=== PATIENT | female | born 1945 | race Caucasian/White ===

== ENCOUNTER → 2016-08-04 | Outpatient (CLI) | payer OTHER ==
[~2016-08-04] VITALS: Ht 170.2 cm; Wt 65.0 kg
[2016-08-04] VITALS (7 sets, daily range): BP systolic 108–154; BP diastolic 62–81
[~2016-08-04] MED LIST: ACYCLOVIR200 MG PO; ACYCLOVIR400 MG PO; ALPRAZOLAM0.5 MG PO; AMLODIPINE BESY10 MG PO; APRESOLINE50 MG PO; Aspirin PO; Atarax,Vistaril PO; BACTRIM,SEPT1 TABLE1 PO; BACTRIM,SEPT1 TABLET PO; BENADRYL25 MG PO; BISACODYL5 MG PO; CALCIUM 600 +1 EAC3 PO; CALCIUM 600 WI1 EAC1 PO; CARAFATE100 MG/ML PO; CHEWABLE MULTI1 EACH PO; CITROMA296 ML PO; CLEARLAX510 GM PO; CLONAZEPAM0.5 MG PO; CLONIDINE HCL0.1 MG PO; COLACE100 MG PO; CYANOCOBALAM1000 MCG PO; Calcium Citrate 600/ PO; Catapres PO; DAILY VITE1 EAC1 PO; DIGESTIVE PROB250 MG PO; DILAUDID2 MG PO; DOK PLUS TABLE1 EACH PO; DULCOLAX; DULCOLAX10 MG PR; DULCOLAX5 MG PO; DYNAPEN 250 MG250 MG PO; ENDOCET 5-3251 EACH PO; ENEMA133 M2 PR; ERGOCALCIF50000 UNIT PO; Epogen,Procrit SC; FEROSUL325 MG PO; FERROUS SULFAT325 MG PO; FLEET MINERAL133 ML PR; FLORASTOR250 MG PO; FLOVENT 11120 INHALA IH; FLOVENT DISKUS1 DISK IH; FUROSEMIDE20 MG PO; FUROSEMIDE40 MG PO; GABAPENTIN300 MG PO; GABAPENTIN800 MG PO; GERI-KOT8.6 MG PO; GLIPIZIDE5 M1 PO; HUMALOG100 UNIT/1 SC; HUMALOG100 UNIT/2 SC; HYDRALAZINE HCL50 MG PO; IMBRUVICA 140 MG PO; IMBRUVICA140 MG PO; IRON325 M1 PO; ISORDIL,SORBITRA5 MG PO; ISOSORBIDE DINIT5 MG PO; KLONOPIN0.5 M1 PO; Kenalog 0.1% Cream TP; KlonoPIN PO; LABETALOL HCL100 MG PO; LABETALOL HCL200 MG; LABETALOL HCL200 MG PO; LANTUS 10100 UNITS/ SC; LANTUS 3 M100 UNITS/ PO; LANTUS 3 M100 UNITS1 SC; LISINOPRIL-HCT1 EAC3 PO; LOPRESSOR50 MG PO; LOSARTAN POTAS100 MG PO; LOVENOX40 MG/0.4 SC; MECLIZINE HCL25 M2 PO; METOCLOPRAMIDE H5 MG PO; MILK OF MAGN PO; MILK OF MAGNESI10 ML PO; MIRTAZAPINE7.5 MG PO; MUPIROCIN22 GM BOTH NARES; NEURONTIN300 MG PO; NORCO 5/3251 TABLET PO; NORMODYNE200 MG PO; NORVASC10 MG PO; NORVASC5 MG PO; NOVOLOG 10100 UNITS/; NOVOLOG 10100 UNITS/ SC; NOVOLOG PE100 UNITS/ SC; Neurontin PO; Normodyne,Trandate PO; NovoLOG, HumaLOG SC; OMEPRAZOLE20 MG PO; OMEPRAZOLE40 M1 PO; PAIN & FEVER325 MG PO; PANTOPRAZOLE SO40 MG PO; PAROXETINE HCL10 MG PO; PAROXETINE HCL20 MG PO; PAROXETINE HCL40 MG PO; PAXIL10 MG PO; PAXIL20 MG PO; PAXIL40 MG PO; PHENADOZ25 MG PR; POTASSIUM CHLO20 ME1 PO; POTASSIUM CHLO20 ME2 PO; PRAVACHOL20 MG PO; PRAVASTATIN SOD20 MG PO; PREDNISONE10 MG PO; PREDNISONE20 MG PO; PRILOSEC20 MG PO; PRINIVIL10 MG PO; PRINIVIL20 MG PO; PROAIR HFA8.5 GM IH; PROAIR RESPICL90 MCG IH; PROCHLORPERAZIN10 MG PO; PROMETHAZINE HC25 M1 PO; PROMETHAZINE12.5 M1 PO; PROTONIX40 MG PO; Paxil PO; REMERON PO; REMERON15 M2 PO; ROCALTROL0.25 MCG PO; ROXICODONE5 MG PO; Rocaltrol PO; SENNA PLUS TAB1 EACH PO; SENNA8.6 MG PO; SPECTRAVITE SE1 EACH PO; SUCRALFATE1 GM/10 ML PO; THERA-M1 EACH PO; TRAMADOL HCL50 MG PO; TRANDATE200 MG PO; TRAZODONE HCL150 MG PO; TRAZODONE HCL50 MG PO; TUMS500 MG PO; TYLENOL REGULA325 MG PO; Tums,OsCal PO; ULTRAM50 MG PO; VANCOCIN HCL125 MG PO; VANCOMYCIN HCL1 GM IV; VICODIN ES 7.51 EAC1 PO; VISTARIL25 MG PO; VITAMIN B12-FO1 EACH PO; XANAX0.5 MG PO; ZOCOR20 MG PO; [UNRECOGNIZED DRUG - OTHER] PO; [UNRECOGNIZED DRUG - OTHER] PO
== END ==
LOC: IVINF 10:00
DX: D64.9 Anemia, unspecified (principal); Z88.6 Allergy status to analgesic agent
CPT/HCPCS: 36415; 36430; 86850; 86900; 86901; 86920; 86999; J1200; J1940; P9016

== ENCOUNTER 2016-08-05 20:57 | Inpatient (IN) | payer OTHER ==
[~2016-08-05] VITALS: Ht 175.3 cm; Wt 72.0 kg
[~2016-08-05 20:57] MED LIST changes: -CARAFATE100 MG/ML PO; -MIRTAZAPINE7.5 MG PO
[2016-08-05 21:49] LABS: HEMATOCRIT 28.4 % (36.0-46.0); MCHC 34.2 G/DL (30.0-36.0); MCV 99.3 FL (83-99); RBC DIS.WIDTH-CV 21.1 % (11.8-14.6); RBC DIS.WIDTH-SD 72.3 % (39-53); RED BLOOD COUNT 2.85 M/uL (3.80-5.20)
[2016-08-05 21:53] LABS: CHLORIDE 105 mEq/L (99-109); POTASSIUM 4.8 mEq/L (3.7-5.4); SODIUM 136 mEq/L (136-147); WHITE BLOOD COUNT 1.3 K/uL (4.1-10.2)
[2016-08-05 21:55] LABS: GLUCOSE 130 mg/dL (70-99)
[2016-08-05 21:57] LABS: ANION GAP 9 MEQ/L (2-14)
[2016-08-05 21:59] LABS: GFR ESTIMATE (CALCULATED) 23 mL/min/
[2016-08-05 22:00] LABS: UREA NITROGEN (BUN) 48 mg/dL (9-23)
[2016-08-05 22:01] LABS: CARBON DIOXIDE (BICARBONATE) 25.7 MEQ/L (20-31)
[2016-08-05 22:08] LABS: TROP-I INTERPRETATION NEGATIVE; TROPONIN-I 0.03 ng/mL (0.0-0.30)
[2016-08-05 22:26] LABS: MEAN PLAT.VOLUME 10.7 uM^3 (9.5-12.4)
[2016-08-05 22:27] LABS: PLATELET COUNT 12 K/uL (156-360)
[2016-08-05 22:49] LABS: TOTAL BILIRUBIN 2.1 mg/dL (0.0-1.0)
[2016-08-05 22:50] LABS: ALKALINE PHOSPHATASE 77 IU/L (3-129)
[2016-08-05 22:52] LABS: DIRECT BILIRUBIN 0.9 mg/dL (0.0-0.3)
[2016-08-05 23:34] LABS: ABS NEUTROPHIL COUNT 0.05; ANISOCYTOSIS 1+; MACROCYTES 1+; MICROCYTOSIS FEW; OVALOCYTES FEW; SPHEROCYTES FEW
[2016-08-05] MEDS ORDERED: HUMALOG100 UNIT/2 SC (23:44)
[2016-08-05] MEDS ORDERED: LABETALOL HCL100 MG PO (23:45)
[2016-08-05] MEDS ORDERED: PROTONIX40 MG PO (23:47)
[2016-08-05] MEDS ORDERED: CARAFATE100 MG/ML PO (23:49)
[2016-08-05] MEDS ORDERED: MIRTAZAPINE7.5 MG PO (23:50)
[2016-08-06 03:18] LABS: ADD MIUA? NO; BILIRUBIN NEGATIVE; BLOOD NEGATIVE; COLOR YELLOW ((YELLOW)); GLUCOSE (STRIP) NEGATIVE; KETONES NEGATIVE; LEUKOCYTES NEGATIVE; NITRITE NEGATIVE; PH, URINE 5.5 (5-8); PROTEIN (STRIP) 30; SPECIFIC GRAVITY 1.019 (1.000-1.030); UCUL ADDED? NO; UROBILINOGEN 0.2 MG/DL (0.2-1.0)
[2016-08-06 14:24] VITALS: BP 120/62
[2016-08-06 16:21] VITALS: BP 147/77
[2016-08-06 16:26] LABS: INFLUENZA A VIRAL ANTIGEN NEGATIVE; INFLUENZA B VIRAL ANTIGEN NEGATIVE
[2016-08-06 16:54] LABS: C DIFF TOXIN NEGATIVE (NEGATIVE)
[2016-08-06 16:58] LABS: METH RESISTANT S AUREUS PCR POSITIVE (NEGATIVE)
[2016-08-06 16:58] LABS: PROBE CHECK PASS; SPECIMEN PROCESSING CONTROL PASS
[2016-08-06 17:07] LABS: PROBE CHECK PASS
[2016-08-06 19:09] LABS: INTER. NORMALIZED RATIO 1.3; PROTHROMBIN TIME 13.7 (9.2-11.2); PTT 36.4 (25-32)
[2016-08-06 20:05] VITALS: BP 148/71
[2016-08-06 20:22] LABS: HEMATOCRIT 25.8 % (36.0-46.0); MCH 33.9 PG (29.0-34.0); MCHC 33.3 G/DL (30.0-36.0); MCV 101.6 FL (83-99); MEAN PLAT.VOLUME 11.9 uM^3 (9.5-12.4); PLATELET COUNT 5 K/uL (156-360); RBC DIS.WIDTH-CV 20.9 % (11.8-14.6); RBC DIS.WIDTH-SD 76.4 % (39-53); RED BLOOD COUNT 2.54 M/uL (3.80-5.20); WHITE BLOOD COUNT 0.7 K/uL (4.1-10.2)
[2016-08-06 20:36] LABS: BASE EXCESS -6.6 mEq/L (-3 to +3); BICARBONATE 17.9 mEq/L (22-26); METHEMOGLOBIN 1.4 % (0-1.5); PCO2 31 mm Hg (35-45); PO2 82 mm Hg (80-100); pH 7.37 (7.35-7.45)
[2016-08-06 20:37] LABS: COMMENTS - BLOOD GASES C+; DEVICE NRBM; FI02 100 %; O2 FLOW 15 L/MIN; SITE RR; TOTAL RESP RATE 30 resp/min
[2016-08-06 21:17] LABS: TROP-I INTERPRETATION NEGATIVE; TROPONIN-I 0.06 ng/mL (0.0-0.30)
[2016-08-06 21:24] LABS: ANION GAP 12 MEQ/L (2-14); CHLORIDE 111 MEQ/L (99-109); POTASSIUM 4.8 MEQ/L (3.7-5.4); SAMPLE HEMOLYSIS CHECK 0; SAMPLE ICTERIC CHECK 0; SAMPLE LIPEMIA CHECK 0; SODIUM 142 MEQ/L (136-147); TOTAL BILIRUBIN 1.9 MG/DL (0.0-1.0)
[2016-08-06 21:31] LABS: ALKALINE PHOSPHATASE 68 IU/L (3-129); GFR ESTIMATE (CALCULATED) 31 mL/min/; GLUCOSE 78 mg/dL (70-99); UREA NITROGEN (BUN) 39 mg/dL (9-23)
[2016-08-06 23:00] VITALS: BP 123/73
[2016-08-07] VITALS (28 sets, daily range): BP systolic 108–177; BP diastolic 58–99
[2016-08-07 07:59] LABS: EOSINOPHIL (%) 0 % (0-5); HEMATOCRIT 22.8 % (36.0-46.0); LYMPHOCYTE COUNT 0.5 K/uL (1.0-2.8); MCH 33.2 PG (29.0-34.0); MCHC 32.9 G/DL (30.0-36.0); MCV 100.9 FL (83-99); MONOCYTE (%) 11.5 % (3-12); MONOCYTE COUNT 0.1 K/uL (0-0.8); NEUTROPHIL (%) 6.6 % (45-76); RBC DIS.WIDTH-SD 75.2 % (39-53); RED BLOOD COUNT 2.26 M/uL (3.80-5.20); WHITE BLOOD COUNT 0.6 K/uL (4.1-10.2)
[2016-08-07 08:03] LABS: INTERNAL CONTROL VALID? YES
[2016-08-07 08:35] LABS: POINT-OF-CARE METER ID UU13113781
[2016-08-07 09:06] LABS: ABS NEUTROPHIL COUNT 0.02; ANISOCYTOSIS OCC; HEMATOLOGY COMMENT 1 DIFF ON BUFFY COAT; HYPOCHROMASIA 1+; MACROCYTES OCC; MEAN PLAT.VOLUME 11.9 uM^3 (9.5-12.4); PLAT.SUFFICIENCY DECREASED
[2016-08-07 09:29] LABS: INTER. NORMALIZED RATIO 1.4
[2016-08-07 10:44] LABS: ANION GAP 8 MEQ/L (2-14); CHLORIDE 113 MEQ/L (99-109); GFR ESTIMATE (CALCULATED) 29 mL/min/; POTASSIUM 4.2 MEQ/L (3.7-5.4); SAMPLE HEMOLYSIS CHECK 0; SAMPLE ICTERIC CHECK 0; SAMPLE LIPEMIA CHECK 0; SODIUM 141 MEQ/L (136-147); UREA NITROGEN (BUN) 39 mg/dL (9-23)
[2016-08-07 10:45] LABS: GLUCOSE 103 mg/dL (70-99)
[2016-08-07 11:34] LABS: BICARBONATE 17.6 mEq/L (22-26); PCO2 29 mm Hg (35-45); pH 7.39 (7.35-7.45)
[2016-08-07 11:35] LABS: COMMENTS - BLOOD GASES C+; DEVICE HHFNC; FI02 60 %; O2 FLOW 40 L/MIN; PO2 64 mm Hg (80-100); SITE RR; TOTAL RESP RATE 50 resp/min
[2016-08-07 11:39] LABS: CARBOXY HGB 2.5 % (0-5); METHEMOGLOBIN 1.1 % (0-1.5)
[2016-08-07 11:44] LABS: PLATELET COUNT 4 K/uL (156-360)
[2016-08-07 11:45] LABS: USER ID CML
[2016-08-07 12:20] LABS: POINT-OF-CARE USER ID NUTSLF44
[2016-08-07 15:45] LABS: POINT-OF-CARE METER ID UU13113803
[2016-08-07 20:26] LABS: BASE EXCESS -6.6 mEq/L (-3 to +3); BICARBONATE 17.7 mEq/L (22-26); CARBOXY HGB 2.1 % (0-5); METHEMOGLOBIN 1.1 % (0-1.5); PCO2 30 mm Hg (35-45); PO2 63 mm Hg (80-100); pH 7.38 (7.35-7.45)
[2016-08-07 20:27] LABS: COMMENTS - BLOOD GASES A+C+; DEVICE HHFNC; FI02 80 %; O2 FLOW 40 L/MIN; SITE LR; TOTAL RESP RATE 48 resp/min
[2016-08-07 22:27] LABS: POINT-OF-CARE METER ID UU14174217
[2016-08-08] VITALS (28 sets, daily range): BP systolic 92–188; BP diastolic 47–110
[2016-08-08 00:56] LABS: ADD MIUA? YES; BILIRUBIN NEGATIVE; BLOOD SMALL; COLOR YELLOW ((YELLOW)); GLUCOSE (STRIP) NEGATIVE; KETONES NEGATIVE; LEUKOCYTES NEGATIVE; NITRITE NEGATIVE; PROTEIN (STRIP) 100; SPECIFIC GRAVITY 1.021 (1.000-1.030); UROBILINOGEN 0.2 MG/DL (0.2-1.0)
[2016-08-08 01:12] LABS: BASE EXCESS -9.1 mEq/L (-3 to +3); BICARBONATE 21.2 mEq/L (22-26); CARBOXY HGB 2.3 % (0-5); METHEMOGLOBIN 1.2 % (0-1.5)
[2016-08-08 01:13] LABS: DEVICE 840; FI02 80 %; MECHANICAL RATE 16 resp/min; MODE AC; PCO2 73 mm Hg (35-45); PEEP 5 CM/H20; PO2 85 mm Hg (80-100); SITE RR; TIDAL VOLUME 350 ML; TOTAL RESP RATE 20 resp/min
[2016-08-08 01:16] LABS: pH 7.07 (7.35-7.45)
[2016-08-08 01:31] LABS: EPITHELIAL CELLS RARE; MUCUS RARE; RED BLOOD CELLS 0-5 /HPF (0-5); WHITE BLOOD CELLS 0-5 /HPF (0-5)
[2016-08-08 01:32] LABS: BACTERIA 2+; CASTS PRESENT /LPF; CRYSTALS PRESENT; UCUL ADDED? NO
[2016-08-08 01:33] LABS: AMORPHOUS URATES CRYSTALS 1+; COARSE GRANULAR CASTS 0-5 /LPF; FINE GRANULAR CASTS RARE /LPF
[2016-08-08 05:38] LABS: BASE EXCESS -9.4 mEq/L (-3 to +3); BICARBONATE 19.4 mEq/L (22-26); CARBOXY HGB 1.8 % (0-5); METHEMOGLOBIN 1.1 % (0-1.5)
[2016-08-08 05:39] LABS: DEVICE 840; FI02 80 %; MECHANICAL RATE 28 resp/min; MODE AC; PCO2 57 mm Hg (35-45); PO2 85 mm Hg (80-100); SITE RR; TIDAL VOLUME 350 ML; TOTAL RESP RATE 28 resp/min
[2016-08-08 05:40] LABS: PEEP 5 CM/H20; pH 7.14 (7.35-7.45)
[2016-08-08 07:36] LABS: ANION GAP 12 MEQ/L (2-14); CHLORIDE 114 MEQ/L (99-109); GFR ESTIMATE (CALCULATED) 26 mL/min/; SAMPLE HEMOLYSIS CHECK 0; SAMPLE ICTERIC CHECK 0; SAMPLE LIPEMIA CHECK 0; SODIUM 143 MEQ/L (136-147); UREA NITROGEN (BUN) 54 mg/dL (9-23)
[2016-08-08 07:38] LABS: GLUCOSE 242 mg/dL (70-99); POTASSIUM 5.2 MEQ/L (3.7-5.4)
[2016-08-08 07:57] LABS: HEMATOCRIT 26.3 % (36.0-46.0); MCH 32.7 PG (29.0-34.0); MCHC 32.3 G/DL (30.0-36.0); MCV 101.2 FL (83-99); MEAN PLAT.VOLUME 12.9 uM^3 (9.5-12.4); RBC DIS.WIDTH-CV 21.2 % (11.8-14.6); RBC DIS.WIDTH-SD 76.6 % (39-53)
[2016-08-08 07:58] LABS: PLATELET COUNT 14 K/uL (156-360); WHITE BLOOD COUNT 0.9 K/uL (4.1-10.2)
[2016-08-08 08:02] LABS: DELETE MACHINE DIFF? YES
[2016-08-08 08:22] LABS: PLAT.SUFFICIENCY DECREASED
[2016-08-08 12:39] LABS: POINT-OF-CARE METER ID UU13113731
[2016-08-08 13:55] LABS: BASE EXCESS -7.7 mEq/L (-3 to +3); BICARBONATE 19.3 mEq/L (22-26); CARBOXY HGB 2.1 % (0-5); METHEMOGLOBIN 1.2 % (0-1.5)
[2016-08-08 13:57] LABS: COMMENTS - BLOOD GASES C+; PCO2 46 mm Hg (35-45); PO2 63 mm Hg (80-100); SITE RR; pH 7.23 (7.35-7.45)
[2016-08-08 13:58] LABS: DEVICE VENT; FI02 65 %; INSPIRATION TIME 0.84 seconds; MECHANICAL RATE 18 resp/min; MODE PC; PEEP 8 CM/H20
[2016-08-08 18:06] LABS: POINT-OF-CARE METER ID UU13113731
[2016-08-09] VITALS (29 sets, daily range): BP systolic 103–142; BP diastolic 54–74
[2016-08-09 06:47] LABS: ANION GAP 13 MEQ/L (2-14); CHLORIDE 113 MEQ/L (99-109); GFR ESTIMATE (CALCULATED) 20 mL/min/; GLUCOSE 140 mg/dL (70-99); HEMATOCRIT 22.6 % (36.0-46.0); MAGNESIUM 1.9 mg/dl (1.3-2.7); MCH 32.8 PG (29.0-34.0); MCHC 34.1 G/DL (30.0-36.0); POTASSIUM 4.3 MEQ/L (3.7-5.4); RBC DIS.WIDTH-CV 20.4 % (11.8-14.6); RBC DIS.WIDTH-SD 70.5 % (39-53); RED BLOOD COUNT 2.35 M/uL (3.80-5.20); SAMPLE HEMOLYSIS CHECK 0; SAMPLE ICTERIC CHECK 0; SAMPLE LIPEMIA CHECK 0; SODIUM 143 MEQ/L (136-147); UREA NITROGEN (BUN) 70 mg/dL (9-23)
[2016-08-09 06:52] LABS: MCV 96.2 FL (83-99); WHITE BLOOD COUNT 0.6 K/uL (4.1-10.2)
[2016-08-09 07:33] LABS: PLATELET COUNT 4 K/uL (156-360)
[2016-08-09 23:39] LABS: POINT-OF-CARE METER ID UU13113803
[2016-08-10] VITALS (24 sets, daily range): BP systolic 110–153; BP diastolic 55–93
[2016-08-10 05:21] LABS: POINT-OF-CARE METER ID UU13113803
[2016-08-10 06:44] LABS: HEMATOCRIT 22.5 % (36.0-46.0); MCH 32.9 PG (29.0-34.0); MCHC 34.2 G/DL (30.0-36.0); MCV 96.2 FL (83-99); RBC DIS.WIDTH-CV 20.1 % (11.8-14.6); RBC DIS.WIDTH-SD 69.8 % (39-53); RED BLOOD COUNT 2.34 M/uL (3.80-5.20)
[2016-08-10 07:16] LABS: ANION GAP 15 MEQ/L (2-14); CHLORIDE 113 MEQ/L (99-109); GFR ESTIMATE (CALCULATED) 18 mL/min/; GLUCOSE 148 mg/dL (70-99); IRON 75 MCG/DL (35-150); POTASSIUM 4.2 MEQ/L (3.7-5.4); SAMPLE HEMOLYSIS CHECK 0; SAMPLE ICTERIC CHECK 0; SAMPLE LIPEMIA CHECK 0; SODIUM 144 MEQ/L (136-147); UREA NITROGEN (BUN) 71 mg/dL (9-23)
[2016-08-10 07:20] LABS: MAGNESIUM 2.5 mg/dl (1.3-2.7)
[2016-08-10 07:51] LABS: MEAN PLAT.VOLUME 10.7 uM^3 (9.5-12.4); PLATELET COUNT 15 K/uL (156-360); WHITE BLOOD COUNT 1.4 K/uL (4.1-10.2)
[2016-08-10 08:26] LABS: FERRITIN 5275 NG/ML (10-291)
[2016-08-10 10:01] LABS: POINT-OF-CARE METER ID UU13113803
[2016-08-10 12:32] LABS: POINT-OF-CARE METER ID UU13113803
[2016-08-10 18:26] LABS: POINT-OF-CARE METER ID UU13113803
[2016-08-10 23:48] LABS: POINT-OF-CARE METER ID UU13113803
[2016-08-11] VITALS (28 sets, daily range): BP systolic 94–186; BP diastolic 50–95
[2016-08-11 06:09] LABS: POINT-OF-CARE METER ID UU13113731
[2016-08-11 06:24] LABS: ANION GAP 14 MEQ/L (2-14); CHLORIDE 110 MEQ/L (99-109); GFR ESTIMATE (CALCULATED) 16 mL/min/; GLUCOSE 313 mg/dL (70-99); MAGNESIUM 2.6 mg/dl (1.3-2.7); POTASSIUM 4.5 MEQ/L (3.7-5.4); SAMPLE HEMOLYSIS CHECK 0; SAMPLE ICTERIC CHECK 0; SAMPLE LIPEMIA CHECK 0; SODIUM 143 MEQ/L (136-147); UREA NITROGEN (BUN) 83 mg/dL (9-23)
[2016-08-11 07:00] LABS: HEMATOCRIT 21.9 % (36.0-46.0); MCH 32.3 PG (29.0-34.0); MCHC 33.3 G/DL (30.0-36.0); MCV 96.9 FL (83-99); RBC DIS.WIDTH-CV 20.2 % (11.8-14.6); RED BLOOD COUNT 2.26 M/uL (3.80-5.20); WHITE BLOOD COUNT 2.6 K/uL (4.1-10.2)
[2016-08-11 07:30] LABS: PLATELET COUNT 6 K/uL (156-360)
[2016-08-11 23:24] LABS: POINT-OF-CARE METER ID UU13113731
[2016-08-12] VITALS (30 sets, daily range): BP systolic 0–137; BP diastolic 0–72
[2016-08-12 05:33] LABS: POINT-OF-CARE METER ID UU13113803
[2016-08-12 06:27] LABS: BASE EXCESS -2.8 mEq/L (-3 to +3); BICARBONATE 24.6 mEq/L (22-26); CARBOXY HGB 1.9 % (0-5); DEVICE 840; FI02 80 %; MECHANICAL RATE 20 resp/min; MODE AC; PCO2 56 mm Hg (35-45); PO2 83 mm Hg (80-100); SITE LR; TIDAL VOLUME 400 ML; TOTAL RESP RATE 20 resp/min
[2016-08-12 06:28] LABS: PEEP 5 CM/H20; pH 7.25 (7.35-7.45)
[2016-08-12 06:50] LABS: ANION GAP 15 MEQ/L (2-14); CHLORIDE 104 MEQ/L (99-109); GFR ESTIMATE (CALCULATED) 15 mL/min/; GLUCOSE 363 mg/dL (70-99); MAGNESIUM 2.3 mg/dl (1.3-2.7); POTASSIUM 3.8 MEQ/L (3.7-5.4); SAMPLE HEMOLYSIS CHECK 0; SAMPLE ICTERIC CHECK 0; SAMPLE LIPEMIA CHECK 0; SODIUM 142 MEQ/L (136-147); UREA NITROGEN (BUN) 89 mg/dL (9-23)
[2016-08-12 07:30] LABS: HEMATOCRIT 18.2 % (36.0-46.0); MCH 33.3 PG (29.0-34.0); MCHC 35.2 G/DL (30.0-36.0); MCV 94.9 FL (83-99); RBC DIS.WIDTH-CV 20.2 % (11.8-14.6); RBC DIS.WIDTH-SD 69.6 % (39-53); RED BLOOD COUNT 1.92 M/uL (3.80-5.20)
[2016-08-12 07:31] LABS: WHITE BLOOD COUNT 1.3 K/uL (4.1-10.2)
[2016-08-12 08:53] LABS: HEMATOLOGY COMMENT 1 SMEAR COMPATIBLE
[2016-08-12 09:02] LABS: PLATELET COUNT 13 K/uL (156-360)
[2016-08-12 10:54] LABS: POINT-OF-CARE METER ID UU14162636; POINT-OF-CARE USER ID 606021424
[2016-08-12 15:07] LABS: POINT-OF-CARE METER ID UU13113803
[2016-08-12 17:50] LABS: POINT-OF-CARE METER ID UU13113803
[2016-08-12 21:29] LABS: POINT-OF-CARE METER ID UU13113803; POINT-OF-CARE USER ID PHATLC
[2016-08-13] VITALS (25 sets, daily range): BP systolic 101–133; BP diastolic 50–72
[2016-08-13 03:26] LABS: POINT-OF-CARE METER ID UU13113803; POINT-OF-CARE USER ID PHATLC
[2016-08-13 06:29] LABS: POINT-OF-CARE METER ID UU13113803; POINT-OF-CARE USER ID PHATLC
[2016-08-13 06:52] LABS: HEMATOCRIT 25.5 % (36.0-46.0); MCH 31.7 PG (29.0-34.0); MCHC 34.9 G/DL (30.0-36.0); RBC DIS.WIDTH-CV 19.1 % (11.8-14.6); RBC DIS.WIDTH-SD 63.5 % (39-53)
[2016-08-13 06:53] LABS: ANION GAP 15 MEQ/L (2-14); CHLORIDE 102 MEQ/L (99-109); GFR ESTIMATE (CALCULATED) 14 mL/min/; MAGNESIUM 2.3 mg/dl (1.3-2.7); POTASSIUM 3.7 MEQ/L (3.7-5.4); SAMPLE HEMOLYSIS CHECK 0; SAMPLE ICTERIC CHECK 0; SAMPLE LIPEMIA CHECK 0; SODIUM 143 MEQ/L (136-147); UREA NITROGEN (BUN) 97 mg/dL (9-23)
[2016-08-13 06:56] LABS: GLUCOSE 135 mg/dL (70-99)
[2016-08-13 07:02] LABS: MCV 90.7 FL (83-99); RED BLOOD COUNT 2.81 M/uL (3.80-5.20)
[2016-08-13 07:28] LABS: HEMATOLOGY COMMENT 1 SMEAR COMPATIBLE; PLATELET COUNT 4 K/uL (156-360)
[2016-08-13 10:09] LABS: POINT-OF-CARE METER ID UU13113803
[2016-08-13 14:10] LABS: POINT-OF-CARE METER ID UU13113803
[2016-08-13 18:59] LABS: POINT-OF-CARE METER ID UU13113803
[2016-08-13 21:52] LABS: POINT-OF-CARE METER ID UU13113803
[2016-08-13 22:32] LABS: EOSINOPHIL (%) 0 % (0-5); HEMATOCRIT 23.6 % (36.0-46.0); HEMATOLOGY COMMENT 1 SMEAR COMPATIBLE; IMMATURE GRANULOCYTE (%) 1.9 % (0.0-0.7); LYMPHOCYTE COUNT 1.4 K/uL (1.0-2.8); MCH 31.2 PG (29.0-34.0); MCHC 34.7 G/DL (30.0-36.0); MCV 90.1 FL (83-99); MEAN PLAT.VOLUME 8.9 uM^3 (9.5-12.4); MONOCYTE (%) 8.2 % (3-12); MONOCYTE COUNT 0.1 K/uL (0-0.8); NEUTROPHIL (%) 2.5 % (45-76); NRBC (%) 1.8 /100 WBC (0-0); PLAT.SUFFICIENCY DECREASED; RBC DIS.WIDTH-CV 19.4 % (11.8-14.6); RED BLOOD COUNT 2.63 M/uL (3.80-5.20); USER ID NJV
[2016-08-13 22:34] LABS: PLATELET COUNT 19 K/uL (156-360); WHITE BLOOD COUNT 1.6 K/uL (4.1-10.2)
[2016-08-13 23:27] LABS: BASE EXCESS 2.1 mEq/L (-3 to +3); BICARBONATE 29.6 mEq/L (22-26); CARBOXY HGB 3.5 % (0-5); METHEMOGLOBIN 1.2 % (0-1.5); PCO2 63 mm Hg (35-45); PEEP 12 CM/H20; PO2 57 mm Hg (80-100); TIDAL VOLUME 400 ML; TOTAL RESP RATE 26 resp/min; pH 7.28 (7.35-7.45)
[2016-08-13 23:28] LABS: DEVICE PB840; FI02 100 %; MECHANICAL RATE 22 resp/min; MODE ACVC+; SITE LB
[2016-08-14] VITALS (13 sets, daily range): BP systolic 74–137; BP diastolic 37–74
[2016-08-14 02:57] LABS: POINT-OF-CARE METER ID UU13113803
[2016-08-14 05:16] LABS: POINT-OF-CARE METER ID UU13113803
[2016-08-14 07:01] LABS: ANION GAP 17 MEQ/L (2-14); CHLORIDE 98 MEQ/L (99-109); GFR ESTIMATE (CALCULATED) 13 mL/min/; GLUCOSE 158 mg/dL (70-99); MAGNESIUM 2.3 mg/dl (1.3-2.7); POTASSIUM 4.1 MEQ/L (3.7-5.4); SAMPLE HEMOLYSIS CHECK 0; SAMPLE ICTERIC CHECK 0; SAMPLE LIPEMIA CHECK 1; SODIUM 141 MEQ/L (136-147); UREA NITROGEN (BUN) 98 mg/dL (9-23)
[2016-08-14 07:29] LABS: HEMATOCRIT 25.6 % (36.0-46.0); MCH 31.8 PG (29.0-34.0); MCHC 34.8 G/DL (30.0-36.0); MCV 91.4 FL (83-99); RBC DIS.WIDTH-CV 19.8 % (11.8-14.6); RBC DIS.WIDTH-SD 66.4 % (39-53)
[2016-08-14 07:30] LABS: WHITE BLOOD COUNT 1.9 K/uL (4.1-10.2)
[2016-08-14 07:43] LABS: MEAN PLAT.VOLUME 10.3 uM^3 (9.5-12.4)
[2016-08-14 07:45] LABS: PLATELET COUNT 18 K/uL (156-360)
[2016-08-14 10:21] LABS: POINT-OF-CARE METER ID UU13113803
== END 2016-08-14 11:18 | DRG 853 ==
LOC: EME → EDBD 20:57 → EDOF 08-06 03:00 → 2EASTP 08-06 03:00 → 4WEST 08-06 03:00 → 4EAST 08-06 03:00 → 2EASTP 08-06 14:04 → 4EAST 08-06 19:59 → 4WEST 08-07 13:42
PROVIDERS: Emergency Medicine; Hospitalist; Internal Medicine; Internal Medicine Critical Care Medicine
PROC: 30233N1 Transfusion of Nonautologous Red Blood Cells into Peripheral Vein, Percutaneous Approach (ICD-10-PCS; 2016-08-07)
PROC: 0BBM8ZX Excision of Bilateral Lungs, Via Natural or Artificial Opening Endoscopic, Diagnostic (ICD-10-PCS; 2016-08-09)
PROC: 5A1955Z Respiratory Ventilation, Greater than 96 Consecutive Hours (ICD-10-PCS; principal; 2016-08-11)
DX: A41.9 Sepsis, unspecified organism (principal); J18.9 Pneumonia, unspecified organism; J96.01 Acute respiratory failure with hypoxia; E87.2 Acidosis; N17.9 Acute kidney failure, unspecified; D61.818 Other pancytopenia; J44.0 Chronic obstructive pulmonary disease with (acute) lower respiratory infection; J44.1 Chronic obstructive pulmonary disease with (acute) exacerbation; C91.10 Chronic lymphocytic leukemia of B-cell type not having achieved remission; E78.5 Hyperlipidemia, unspecified; N18.3 Chronic kidney disease, stage 3 (moderate); E11.65 Type 2 diabetes mellitus with hyperglycemia; I12.9 Hypertensive chronic kidney disease with stage 1 through stage 4 chronic kidney disease, or unspecified chronic kidney disease; R00.0 Tachycardia, unspecified; R41.82 Altered mental status, unspecified; R59.1 Generalized enlarged lymph nodes; E11.22 Type 2 diabetes mellitus with diabetic chronic kidney disease; G89.29 Other chronic pain; D69.6 Thrombocytopenia, unspecified; F41.9 Anxiety disorder, unspecified; F32.9 Major depressive disorder, single episode, unspecified; D70.9 Neutropenia, unspecified; R62.7 Adult failure to thrive; Z88.6 Allergy status to analgesic agent; Z91.018 Allergy to other foods; Z87.891 Personal history of nicotine dependence
CPT/HCPCS: 36415; 36600; 70450; 71010; 71250; 74000; 80048; 80053; 80076; 80202; 81003; 82728; 82803; 82948; 83540; 83605; 83735; 83880; 84100; 84466; 84484; 85007; 85009; 85025; 85027; 85060; 85610; 85730; 86850; 86900; 86901; 86920; 86999; 87040; 87070; 87077; 87086; 87186; 87205; 87449; 87493; 87502; 87641; 93005; 94002; 94003; 94640; 94640 76; 94760; 94799; 99202; 99281; 99285; J0360; J0456; J0692; J0881; J1447; J1630; J1815; J1940; J1956; J2060; J2543; J2704; J2765; J2920; J2930; J3010; J3370; J3475; J7030; J7040; J7050; J7070; J7120; P9016; P9035; P9045; S0028